=== PATIENT | male | born 1955 | race Two or more races ===

== ENCOUNTER 2022-03-20 17:15 | Emergency (ER) | payer OTHER ==
[~2022-03-20] VITALS: Ht 177.8 cm; Wt 100.0 kg
[2022-03-20] MEDS ORDERED: SODIUM BICARBONATE 8.4% INJ 50ML SYRINGE IV ONE (17:16)
[2022-03-20] MEDS ORDERED: AMIODARONE HCL (50 MG/ ML) 3 ML VIAL IV ONE (17:16)
[2022-03-20] MEDS ORDERED: EPINEPHrine HCL 1 MG/10 ML SYRG IV ONE (17:16)
[2022-03-20 17:17] VITALS: BP 0/0
== END 2022-03-20 22:23 ==
LOC: EDBD 17:15 → ER 17:15
DX: I46.9 Cardiac arrest, cause unspecified (principal); R41.82 Altered mental status, unspecified; R06.89 Other abnormalities of breathing; E11.9 Type 2 diabetes mellitus without complications
CPT/HCPCS: 31500; 92950; 99285; J0171; J0282